=== PATIENT | male | born 1990 | race Caucasian/White ===

== ENCOUNTER 2024-12-15 12:51 | Emergency (ER) | payer SELFPAY ==
[2024-12-15 12:57] VITALS: BP 159/89; PULSE 82; TEMP 36.6; O2SAT 99; BMI 23.0
--- NOTE | 2024-12-15 13:27 | ED_ITS ---
HPI HPI - General Adult General Chief complaint: Extremity Problem, Nontraumatic Stated complaint: R FOOT ABCESS Time Seen by Provider: 12/15/24 13:19 Source: patient Mode of arrival: walk-in Limitations: no limitations History of Present Illness HPI narrative: Patient is a 34-year-old male who denies any past medical history that presents with complaints of a abscess on his right fourth toe. He states that it started off red, painful, and itchy and then a white fluid-filled lesion appeared last night. He thinks his new tight work boots may have been irritating it. Patient denies any fever, night sweats, or chills. He denies that he injects anything into his feet or toes. He states that he has had cellulitis on one of his feet previously that required antibiotics. Related Data Previous Rx's ?Medication ?Instructions ?Recorded cephalexin 500 mg capsule 500 mg PO Q6H 7 days #28 cap s 12/15/24 Allergies Allergy/AdvReac Type Severity Reaction Status Date / Time No Known Drug Allergies Allergy Verified 12/15/24 13:01 Review of Systems ROS Status of ROS 10 or more systems reviewed and unremark able except as noted in history and below PFSH PFSH Social History Little interest or pleasure in doing things: not at all Feeling down, depressed, or hopeless: not at all Exam Narrative Exam Narrative: General: No distress, age-appropriate Skin: Warm, dry, no pallor. No rash. Right 4th dorsum of toe there is a white fluid filled lesion, pus and serosanguineous fluid able to be easily expressed from it, mild surrounding erythema, no swelling. Head: Normocephalic, atraumatic. Neck: Supple, non-tender. Eye: Pupils are equal, round and EOMI. No scleral icterus. Ears, Nose, Mouth, and Throat: No nasal mucosal hypertrophy. Oral mucosa is moist, no posterior oropharynx erythema, uvula is mid-line Cardiovascular: Regular Rate and Rhythm without murmur, gallop or rub. Respiratory: No accessory muscle use or respiratory distress. Back: No midline thoracic or lumbar vertebral tenderness. Musculoskeletal: Full ROM of all extremities, no calf or popliteal tenderness Neurological: A&O x4. No cranial nerve dysfunction observed. No truncal ataxia. Moves all extremities. Sensation intact. Psychiatric: Cooperative and interactive. Normal mood and affect. Constitutional Vital Signs, click to edit/add: Last Vital Signs Temp 97.9 F 12/15/24 12:57 Pulse 82 12/15/24 12:57 Resp 18 12/15/24 12:57 BP 159/89 H 12/15/24 12:57 Pulse Ox 99 12/15/24 12:57 O2 Del Method Room Air 12/15/24 12:57 Documenting provider has reviewed patient's vital signs: yes Course Vital Signs Vital signs: Vital Signs Temperature 97.9 F 12/15/24 12:57 Pulse Rate 82 12/15/24 12:57 Respiratory Rate 18 12/15/24 12:57 Blood Pressure 159/89 H 12/15/24 12:57 Pulse Oximetry 99 12/15/24 12:57 Oxygen Delivery Method Room Air 12/15/24 12:57 Temperature 97.9 F 12/15/24 12:57 Pulse Rate 82 12/15/24 12:57 Respiratory Rate 18 12/15/24 12:57 Blood Pressure 159/89 H 12/15/24 12:57 Pulse Oximetry 99 12/15/24 12:57 Oxygen Delivery Method Room Air 12/15/24 12:57 Medical Decision Making MDM Narrative Medical decision making narrative: This is a 34-year-old male that presents with complaints of right fourth toe white fluid-filled lesion, redness, pain, and itching. The lesion appeared yesterday. He denies any fever, night sweats, chills. He thinks this developed from his new tight work boots. He has previous history of cellulitis on one of his feet that resolved with antibiotics. He denies any medical history but does not see a physician. On exam the right fourth toe has a dorsal fluid-filled lesion that is able to be easily expressed with fingers, pus and serosanguineous fluid expressed. Mild surrounding erythema. Patient is neurovascularly intact. Lesion is nontender with palpation. Wound was irrigated and dressing placed. Patient stable in the emergency department. Afebrile at 97.9 ?F. We discussed wound care and I did prescribe patient a 7-day course of Keflex. Return precautions to the ED were discussed if the redness should start to spread, swelling appears, or systemic symptoms such as fever, night sweats, or chills. Patient voiced understanding and was discharged with plan for wound care, antibiotics, and return to the emergency department if symptoms do not improve. Differential Diagnosis Differential Diagnosis: Toe abscess, blister Discharge Plan Discharge Chief Complaint: Extremity Problem, Nontraumatic Clinical Impression: Abscess of toe of right foot Patient Disposition: Home, Self-Care Time of Disposition Decision: 13:32 Condition: Good Mode of Transportation: Private Vehicle Prescriptions / Home Meds: New cephalexin 500 mg capsule 500 mg PO Q6H 7 Days Qty: 28 0RF Print Language: Hebrew Instructions: Abscess (ED) Referrals: Mariza STEPHENSON [Primary Care Provider, Family Practice] - 1 week
== END 2024-12-15 13:53 | disposition home or self-care (01) ==
PROVIDERS: Emergency Provider Emergency Medicine; PCP Family Medicine
DX: L02.611 Cutaneous abscess of right foot (principal)
CPT/HCPCS: 99283